=== PATIENT | female | born 1985 | race Caucasian/White ===

== ENCOUNTER 2020-10-25 10:55 | Day surgery (SDC) | payer OTHER ==
[~2020-10-25] VITALS: Ht 167.6 cm; Wt 105.2 kg
[2020-10-25] MEDS ORDERED: diphenhydrAMINE 50 MG/ML VIAL ONE (12:52)
[2020-10-25] MEDS ORDERED: LIDOCAINE 2% 100 MG/5 ML UJET TP ONE (12:52)
[2020-10-25] MEDS ORDERED: MIDAZOLAM 5 MG/5 ML VIAL ONE (12:52)
[2020-10-25] MEDS ORDERED: fentaNYL citrate 0.05 MG/ML VIAL ONE (12:52)
[2020-10-25] MEDS ORDERED: MIDAZOLAM 2 MG/2 ML VIAL IVP ONE (15:05)
[2020-10-25] MEDS ORDERED: fentaNYL citrate 0.05 MG/ML VIAL IVP ONE (15:05)
== END 2020-10-25 14:00 | disposition home or self-care (01) ==
LOC: MDS 10:55 → MMU 10:56 → MDS 14:00
PROVIDERS: ATTEND Internal Medicine Gastroenterology
DX: K62.5 Hemorrhage of anus and rectum (principal); K63.5 Polyp of colon; K64.4 Residual hemorrhoidal skin tags; K59.00 Constipation, unspecified; Q90.9 Down syndrome, unspecified; Z79.899 Other long term (current) drug therapy; Z90.49 Acquired absence of other specified parts of digestive tract; Z90.721 Acquired absence of ovaries, unilateral
CPT/HCPCS: 45385; 87426; J2250; J3010; J1200